=== PATIENT | female | born 1985 | race American Indian/Alaskan Native ===

== ENCOUNTER 2022-02-22 16:34 | Emergency (ER) | payer MEDICAID ==
[2022-02-22 17:08] VITALS: BP 142/85
[2022-02-23] MEDS ORDERED: SUCRALFATE 1 GM/10 ML ORAL LIQD PO ONE (06:36)
[2022-02-23] MEDS ORDERED: PANTOPRAZOLE 40 MG TAB PO ONE (06:36)
--- NOTE | 2022-02-23 06:37 | Emergency Department Report ---
ED General Adult HPI - General Chief complaint: Chest Pain Stated complaint: CHEST PAIN/BACK PAIN Time Seen by Provider: 02/23/22 06:27 Source: patient, EMS ( EMS documentation not available at time of chart dictation ), RN notes reviewed Mode of arrival: Ambulatory Limitations: No Limitations - History of Present Illness Initial comments: The patient was evaluated in the emergency department for symptoms described in the history of present illness. He/she was evaluated in the context of the global COVID-19 pandemic, which necessitated consideration that the patient might be at risk for infection with the virus that causes COVID-19. Institutional protocols and algorithms that pertain to the evaluation of patients at risk for COVID-19 are in a state of rapid change based on information released by regulatory bodies including the CDC and federal and state organizations. These policies and algorithms were followed during the patient's care in the emergency department. Please note that these policies, procedures and recommendations changed on a rapid basis. During the history and physical examination, I am chaperoned and escorted by fran Knowles This is a 36-year-old female who reports that she is not who presents to the emergency room today with a complaint of a few days of nonexertional chest wall pain. The pain does not radiate to the back, arms or neck. There is no vomiting, diaphoresis or exertional shortness of breath. The patient denies , oral contraceptive use, DVT and pulmonary embolism risk factors. The chest wall pain increases with palpation. It decreases with rest. On review of systems, endorses chronic musculoskeletal back pain, and dysuria, as well as chronic eczematous rash. She reports having had an MRI at [place] a few weeks ago, which she believes demonstrated a renal cyst, and possibly spinal stenosis or radiculopathy. She is not certain. However, she denies extremity w eakness, numbness, and bladder/bowel retention incontinence and makes no mention of saddle anesthesia. As she is unfortunately allergic/intolerant to both acetaminophen and ibuprofen, and reports that she gets hives when taking these medications. She makes no endorsement of recent aspirin consumption, and denies family history of DVT, PE/ACS. -: days(s) Location: chest, back Severity scale (0 -10): 8 Consistency: constant Improves with: rest Worsens with: other (Movement and palpation of the anterior chest wall) - Related Data Previous Rx's Medication Instructions Recorded Last Taken Type Triamcinolone 0.1% [Kenalog 0.1% 1 applic TP TID #1 tube 02/23/22 Unknown Rx CREAM] Allergies Allergy/AdvReac Type Severity Reaction Status Date / Time acetaminophen [From Tylenol] Allergy Rash Verified 02/22/22 17:02 ibuprofen Allergy Rash Verified 02/22/22 17:02 strawberries Allergy Rash Uncoded 02/22/22 17:02 ED Review of Systems ROS: Stated complaint: CHEST PAIN/BACK PAIN Other details as noted in HPI Constitutional: denies: fever Eyes: denies: eye discharge ENT: denies: epistaxis Respiratory: denies: wheezing Cardiovascular: chest pain Gastrointestinal: denies: abdominal pain, vomiting, melena, hematochezia Genitourinary: dysuria Musculoskeletal: back pain, arthralgia, myalgia Skin: lesions Neurological: denies: weakness, numbness ED Past Medical Hx - Past Medical History Previous Medical History?: Yes Hx Hypertension: Yes Hx Diabetes: Yes Hx Asthma: Yes Additional medical history: Anemia. DJD, Left renal cyst - Surgical History Past Surgical History?: Yes Additional Surgical History: x 4 - Medications Home Medications: Home Medications Medication Instructions Recorded Confirmed Last Taken Type Triamcinolone 0.1% [Kenalog 0.1% 1 applic TP TID #1 tube 02/23/22 Unknown Rx CREAM] ED Physical Exam - General Limitations: No Limitations General appearance: alert, in no apparent distress - Head Head exam: Present: atraumatic, normocephalic - Eye Eye exam: Present: normal appearance, EOMI. Absent: nystagmus - ENT ENT exam: Present: normal exam, normal orophraynx, mucous membranes moist, normal external ear exam - Neck Neck exam: Present: normal inspection, full ROM. Absent: tenderness, me ningismus - Respiratory Respiratory exam: Present: normal lung sounds bilaterally, chest wall tenderness. Absent: respiratory distress, wheezes, rales, rhonchi, stridor, decreased breath sounds - Cardiovascular Cardiovascular Exam: Present: regular rate, normal rhythm, normal heart sounds. Absent: bradycardia, tachycardia, irregular rhythm, systolic murmur, diastolic murmur, rubs, gallop - GI/Abdominal GI/Abdominal exam: Present: soft. Absent: distended, tenderness, guarding, rebound, rigid, pulsatile mass - Extremities Exam Extremities exam: Present: full ROM, other (2+ pulses noted in the bilateral upper and lower extremities. There is no palpable cord. negative Homans sign. Muscular compartments are soft. The pelvis is stable.). Absent: normal inspection (Eczematous rash noted in the upper and lower extremities, without redness, pus or streaking), pedal edema, calf tenderness - Back Exam Back exam: Present: normal inspection. Absent: tenderness, CVA tenderness (R), CVA tenderness (L), paraspinal tenderness, vertebral tenderness - Neurological Exam Neurological exam: Present: alert, oriented X3, normal gait, reflexes normal, other (No facial droop. Tongue midline. Extraocular movements intact bilaterally. Facial sensation intact to light touch in V1, V2, V3 distribution bilaterally. 5 and a 5 strength in 4 extremities. Sensation intact to light touch in 4 extremities.). Absent: motor sensory deficit - Psychiatric Psychiatric exam: Present: normal affect, normal mood - Skin Skin exam: Present: warm, dry, intact, normal color. Absent: rash ED Course Vital Signs 02/22/22 02/23/22 17:07 08:21 Temperature 98 F Pulse Rate 78 Respiratory 20 Rate Blood Pressure 142/85 [Right] O2 Sat by Pulse 98 Oximetry O2 Sat by Pulse 99 Oximetry [ Digit-Finger] - Reevaluation(s) Reevaluation #1: 02/23/22 06:57 Differential diagnosis, including but not limited to: GERD, gastritis, hiatal hernia, pneumonia, costochondritis, eczematous rash, urinary tract infection Assessment and plan: 36-year-old female, who is not currently tachycardic, tachypneic or hypoxic, who denies DVT and pulmonary embolism risk factors, who is low risk by Wells criteria for pulmonary embolism, EKG unremarkable x1, troponin negative x1, in the context of days of symptoms. Acute myocardial infarction is excluded as symptoms present for greater than 8 hours, as per the [employer] clinical policy. Patient has equal pulses in the upper and lower extremities, no pulsatile abdominal mass, and an unremarkable x-ray of the chest, therefore, aortic disease is very unlikely. Patient at low risk for major adverse cardiac event as per heart score. There is reproducible chest wall pain. Patient is unfortunately allergic/i ntolerant to acetaminophen and ibuprofen. Have not identified a condition that would require narcotic therapy. Ice packs, heat packs, Carafate, Pepcid/Protonix. Remainder of diagnostic studies pending. Patient educated that she does not appear to have an emergent medical condition present at this time. Reassess after remainder of laboratory studies results 02/23/22 07:36 EKG #2 is interpreted by myself at 07: 3 0 a.m. Sinus rhythm, bradycardia, rate 57 bpm. Normal axis, normal P wave axis, QTC 4 4 0 ms. High left ventricular voltage. This is not a STEMI. This appears to be unchanged from prior EKG. Patient continues to rest comfortably in stretcher. Awaiting remainder of laboratory studies. 02/23/22 09:56 Patient in no acute distress. X-ray of the chest unremarkable. Laboratory studies essentially unremarkable with the exception of mild nonspecific transaminitis. There is no right upper quadrant pain or tenderness. Expectant management, outpatient follow-up. Observed in this department for hours without clinical decompensation - Pulse Oximetry Interpretation Digit-Finger Initial Pulse Oximetry Readin O2 Sat by Pulse Oximetry: 99 Actions Taken: none ED Medical Decision Making - Lab Data Result diagrams: 02/23/22 06:59 02/23/22 06:59 Vital Signs 02/22/22 17:07 Temperature 98 F Pulse Rate 78 Respiratory 20 Rate Blood Pressure 142/85 [Right] O2 Sat by Pulse 98 Oximetry Lab Results 02/23/22 02/23/22 02/23/22 Range/Units 06:59 06:59 06:59 WBC 9.7 (4.5-11.0) K/mm3 RBC 4.50 (3.65-5.03) M/mm3 Hgb 11.7 (10.1-14.3) gm/dl Hct 35.6 (30.3-42.9) % MCV 79 (79-97) fl MCH 26 L (28-32) pg MCHC 33 (30-34) % RDW 20.1 H (13.2-15.2) % Plt Count 211 (140-440) K/mm3 Lymph % (Auto) 44.3 H (13.4-35.0) % [place] % (Auto) 8.5 H (0.0-7.3) % Eos % (Auto) 2.2 (0.0-4.3) % Baso % (Auto) 0.5 (0.0-1.8) % Lymph # (Auto) 4.3 (1.2-5.4) K/mm3 [place] # (Auto) 0.8 (0.0-0.8) K/mm3 Eos # (Auto) 0.2 (0.0-0.4) K/mm3 Baso # (Auto) 0.1 (0.0-0.1) K/mm3 Seg Neutrophils % 44.5 (40.0-70.0) % Seg Neutrophils # 4.3 (1.8-7.7) K/mm3 PT 13.2 (12.2-14.9) Sec. INR 0.91 (0.87-1.13) Sodium 135 L (137-145) mmol/L Potassium 4.1 (3.6-5.0) mmol/L Chloride 100.6 (98-107) mmol/L Carbon Dioxide 24 (22-30) mmol/L Anion Gap 15 mmol/L BUN 6 L (7-17) mg/dL Creatinine 0.6 (0.6-1.2) mg/dL Estimated GFR > 60 ml/min BUN/Creatinine Ratio 10 % Glucose 236 H (65-100) mg/dL Calcium 9.5 (8.4-10.2) mg/dL Total Bilirubin 0.20 (0.1-1.2) mg/dL AST 57 H (5-40) units/L ALT 59 H (7-56) units/L Alkaline Phosphatase 84 (35-129) units/L Troponin T < 0.010 (0.00-0.029) ng/mL Total Protein 8.4 H (6.3-8.2) g/dL Albumin 4.1 (3.9-5) g/dL Albumin/Globulin Ratio 1.0 % HCG, Quant (0-4) mIU/mL Urine Color (Yellow) Urine Turbidity (Clear) Urine pH (5.0-7.0) Ur Specific [place] (1.003-1.030) Urine Protein (Negative) mg/dL Urine Glucose (UA) (Negative) mg/dL Urine Ketones (Negative) mg/dL Urine Blood (Negative) Urine Nitrite (Negative) Urine Bilirubin (Negative) Urine Urobilinogen (<2.0) mg/dL Ur Leukocyte Esterase (Negative) Urine WBC (Auto) (0.0-6.0) /HPF Urine RBC (Auto) (0.0-6.0) /HPF U Epithel Cells (Auto) (0-13.0) /HPF Urine Bacteria (Auto) (Negative) /HPF 02/23/22 02/23/22 Range/Units 06:59 Unknown WBC (4.5-11.0) K/mm3 RBC (3.65-5.03) M/mm3 Hgb (10.1-14.3) gm/dl Hct (30.3-42.9) % MCV (79-97) fl MCH (28-32) pg MCHC (30-34) % RDW (13.2-15.2) % Plt Count (140-440) K/mm3 Lymph % (Auto) (13.4-35.0) % [place] % (Auto) (0.0-7.3) % Eos % (Auto) (0.0-4.3) % Baso % (Auto) (0.0-1.8) % Lymph # (Auto) (1.2-5.4) K/mm3 [place] # (Auto) (0.0-0.8) K/mm3 Eos # (Auto) (0.0-0.4) K/mm3 Baso # (Auto) (0.0-0.1) K/mm3 Seg Neutrophils % (40.0-70.0) % Seg Neutrophils # (1.8-7.7) K/mm3 PT (12.2-14.9) Sec. INR (0.87-1.13) Sodium (137-145) mmol/L Potassium (3.6-5.0) mmol/L Chloride (98-107) mmol/L Carbon Dioxide (22-30) mmol/L Anion Gap mmol/L BUN (7-17) mg/dL Creatinine (0.6-1.2) mg/dL Estimated GFR ml/min BUN/Creatinine Ratio % Glucose (65-100) mg/dL Calcium (8.4-10.2) mg/dL Total Bilirubin (0.1-1.2) mg/dL AST (5-40) units/L ALT (7-56) units/L Alkaline Phosphatase (35-129) units/L Troponin T (0.00-0.029) ng/mL Total Protein (6.3-8.2) g/dL Albumin (3.9-5) g/dL Albumin/Globulin Ratio % HCG, Quant < 2 (0-4) mIU/mL Urine Color Straw (Yellow) Urine Turbidity Hazy (Clear) Urine pH 6.0 (5.0-7.0) Ur Specific [place] 1.025 (1.003-1.030) Urine Protein <15 mg/dl (Negative) mg/dL Urine Glucose (UA) Negative (Negative) mg/dL Urine Ketones Negative (Negative) mg/dL Urine Blood Moderate A (Negative) Urine Nitrite Negative (Negative) Urine Bilirubin Negative (Negative) Urine Urobilinogen < 2.0 (<2.0) mg/dL Ur Leukocyte Esterase Negative (Negative) Urine WBC (Auto) 5.0 (0.0-6.0) /HPF Urine RBC (Auto) 26.0 (0.0-6.0) /HPF U Epithel Cells (Auto) 6.0 (0-13.0) /HPF Urine Bacteria (Auto) 1+ (Negative) /HPF - EKG Data -: EKG Interpreted by Mi EKG shows normal: sinus rhythm Rate: normal - EKG Data When compared to previous EKG there are: previous EKG unavailable 02/23/22 06:57 The EKG is interpreted by myself at 0700 a.m. Sinus rhythm, 79 bpm. Normal axis, normal P wave axis, high left ventricular voltage, QTC 4 5 7 ms. This is an abnormal EKG. This is not a STEMI - Radiology Data Radiology results: pending, report reviewed, image reviewed CHEST 2 VIEWS INDICATION / CLINICAL INFORMATION: atypical chest pain. COMPARISON: None available. FINDINGS: SUPPORT DEVICES: None. HEART / MEDIASTINUM: No significant abnormality. LUNGS / PLEURA: No significant pulmonary or pleural abnormality. No pneumothorax. ADDITIONAL FINDINGS: No sig nificant additional findings. IMPRESSION: 1. No acute findings. Signer Name: Rasta Greenwood DO Signed: 02/23/2022 8:07 AM Workstation Name: [id number] Critical care attestation.: If time is entered above; I have spent that time in minutes in the direct care of this critically ill patient, excluding procedure time. ED Disposition Clinical Impression: Eczema, Nonspecific chest pain, Transaminitis Disposition: HOME / SELF CARE / HOMELESS Is pt being admited?: No Does the pt Need Aspirin: No Condition: Good Instructions: Costochondritis Additional Instructions: Rest, avoid heavy lifting and strenuous physical activities. Alternate ice packs and heat packs as needed for physical pain relief. May take [id number] Pepcid, famotidine, or Protonix as needed for pain relief. Patient would typically be prescribed alternating Tylenol or ibuprofen for her chest wall pain, but since the patient is allergic, cannot recommend these medications. Can also not recommend opioids or sedating medications for chest wall pain. Laboratory studies were essentially unremarkable in the emergency room, with exception of mild nonspecific and nonemergent elevation in liver function test. Avoid consumption of alcohol, tobacco, smoke products, heavy and spicy foods. Patient may use the triamcinolone cream as needed for eczematous rash. We recommend follow-up with a primary care doctor or cable placer in the next 3 to 5 days for patient's nonspecific chest pain. We recommend follow-up with a primary care doctor within the next month for complaints of chronic back pain, and nonspecific elevation in liver test. Please have your primary care doctor contact the medical records department to obtain copies of laboratory studies and radiology studies. Please return to the emergency room right away with new pain, worsened pain, migration of pain, projectile vomiting, change in mental status, confusion, inability tolerate liquid feeds, new, worsened or different symptoms not present on the initial emergency room evaluation Prescriptions: Triamcinolone 0.1% [Kenalog 0.1% CREAM] 1 applic TP TID #1 tube Referrals: PRIMARY CARE, [Primary Care Provider] - 3-5 Days [facility] [Provider Group] - 3-5 Days [facility] [Provider Group] - 3-5 Days Forms: Work/School Release Form(ED) Heart Score - HEART Score History: Slightly suspicious EKG: Non-specific Age: < 45 Risk factors: > 3 risk factors or hx of atherosclerotic disease Troponin: < normal limit HEART Score: 3 - EKG Read Time Time EKG Completed: 16:51 EKG Read Time: 16:51 - Critical Actions Critical Actions: 0-3 pts:0.9-1.7%risk of adverse cardiac event.Candidate for discharge
[2022-02-23 07:27] LABS: Basophils # (Auto) 0.1 K/mm3 (0.0-0.1); Basophils % (Auto) 0.5 % (0.0-1.8); Eosinophils # (Auto) 0.2 K/mm3 (0.0-0.4); Eosinophils % (Auto) 2.2 % (0.0-4.3); Hematocrit 35.6 % (30.3-42.9); Hemoglobin 11.7 gm/dl (10.1-14.3); Lymphocytes # (Auto) 4.3 K/mm3 (1.2-5.4); Lymphocytes % (Auto) 44.3 % (13.4-35.0); Mean Corpuscular HGB Conc 33 % (30-34); Mean Corpuscular Volume 79 fl (79-97); Monocytes # (Auto) 0.8 K/mm3 (0.0-0.8); Monocytes % (Auto) 8.5 % (0.0-7.3); Platelet Count 211 K/mm3 (140-440)
[2022-02-23 07:34] LABS: Red Cell Distribution Width 20.1 % (13.2-15.2)
[2022-02-23 07:42] LABS: Alanine Aminotransferase 59 units/L (7-56); Albumin 4.1 g/dL (3.9-5); Blood Urea Nitrogen 6 mg/dL (7-17); Calcium 9.5 mg/dL (8.4-10.2); Hemolysis Index 4
[2022-02-23 07:51] LABS: INR 0.91 (0.87-1.13)
[2022-02-23 08:01] LABS: BUN/Creatinine Ratio 10
[2022-02-23 08:09] LABS: Color,Urine Straw (Yellow)
[2022-02-23 08:10] LABS: Bilirubin,Urine Negative (Negative); Blood,Urine Moderate (Negative); Protein,Urine <15 mg/dL mg/dL (Negative); Urobilinogen,Urine < 2.0 mg/dL (<2.0)
[2022-02-23 08:11] LABS: Bacteria,Urine 1+ /HPF (Negative)
--- NOTE | 2022-02-23 09:11 | XRay Report ---
CHEST 2 VIEWS INDICATION / CLINICAL INFORMATION: atypical chest pain. COMPARISON: None available. FINDINGS: SUPPORT DEVICES: None. HEART / MEDIASTINUM: No significant abnormality. LUNGS / PLEURA: No significant pulmonary or pleural abnormality. No pneumothorax. ADDITIONAL FINDINGS: No significant additional findings. IMPRESSION: 1. No acute findings. Signer Name: Rasta Greenwood DO Signed: 02/23/2022 9:07 AM Workstation Name: [id number]
--- NOTE | 2022-02-23 14:04 | Electrocardiograph Report ---
[facility] Test Date: 2022-02-22 Test Time: 16:51:51 Pat Name: MARA HARPER Department: Room: Gender: F Counselor Supervisor: Malvin POOLE RN : 1985 Requested By: HATTIE DENIS Order Number: [id number] Reading MD: Iris Dolan Measurements Intervals [place] Rate: 79 P: 45 MD: 147 QRS: 31 QRSD: 87 T: 37 QT: 395 QTc: 453 Interpretive Statements Sinus rhythm Probable left atrial enlargement No previous ECG available for comparison Electronically Signed On 02-23-2022 14:04:03 EDT by Iris Dolan
== END 2022-02-23 10:49 | disposition home or self-care (01) ==
LOC: ED 16:34
DX: L30.9 Dermatitis, unspecified (principal); R07.89 Other chest pain; R74.8 Abnormal levels of other serum enzymes; I10 Essential (primary) hypertension; E11.9 Type 2 diabetes mellitus without complications; J45.909 Unspecified asthma, uncomplicated; D64.9 Anemia, unspecified; M19.90 Unspecified osteoarthritis, unspecified site; N28.1 Cyst of kidney, acquired; Z98.890 Other specified postprocedural states; Z88.6 Allergy status to analgesic agent; Z91.013 Allergy to seafood
CPT/HCPCS: 36415; 71046; 80053; 81001; 84484; 84702; 85025; 85610; 87086; 93005; 99284